=== PATIENT | female | born 1975 | race Caucasian/White ===

== ENCOUNTER 2017-06-08 18:19 | Emergency (ER) | payer MEDICAID ==
[~2017-06-08] VITALS: Ht 167.6 cm; Wt 80.4 kg
[~2017-06-08 18:19] MED LIST: ESTROGEN; HYDR12.53 PO; HYDR25TA6 PO; IBUP200T48 PO; MELA3TAB PO; NAPR500T3 PO; OXYC-302 PO; ZOLP5TAB6 PO; [UNRECOGNIZED DRUG - OTHER] PO; doxycycline PO
[2017-06-08 19:11] LABS: DAU SCREEN DISCLAIMER
[2017-06-08 19:30] LABS: BLOOD UREA NITROGEN 14 mg/dL (7-18)
[2017-06-08 19:31] LABS: ACETAMINOPHEN < 2 mcg/mL (10-30)
[2017-06-08] MEDS ORDERED: SULFAMETH./TRIMETHOPRIM DS 800MG/160MG TABLET PO ONE (21:30)
[2017-06-08] MEDS ORDERED: POTASSIUM CHLORIDE 20 MEQ TAB.ER.PRT PO ONE (21:30)
[2017-06-08] MEDS ORDERED: HALOPERIDOL 5 MG/ML IM PRN (22:00)
[2017-06-08] MEDS ORDERED: TEMAZEPAM 15 MG CAPSULE PO PRN (22:00)
[2017-06-08] MEDS ORDERED: BENZTROPINE 1 MG TABLET PO PRN (22:00)
[2017-06-08] MEDS ORDERED: SULFAMETH./TRIMETHOPRIM DS 800MG/160MG TABLET ONE (22:05)
[2017-06-08] MEDS ORDERED: POTASSIUM CHLORIDE 20 MEQ TAB.ER.PRT ONE (22:05)
[2017-06-09 08:57] VITALS: BP 112/57
[2017-06-09] MEDS ORDERED: SULFAMETH./TRIMETHOPRIM DS 800MG/160MG TABLET ONE (09:10)
[2017-06-09] MEDS ORDERED: SULFAMETH./TRIMETHOPRIM DS 800MG/160MG TABLET PO SCH (09:30)
== END 2017-06-09 11:49 | disposition home or self-care (01) ==
LOC: ED 21:30 → SUATTDRO 21:47 → EDIP 22:00 → UNDOADMOB 22:00 → ED 06-09 11:49
PROVIDERS: ATTEND Internal Medicine
DX: N30.01 Acute cystitis with hematuria (principal); T42.6X2A Poisoning by other antiepileptic and sedative-hypnotic drugs, intentional self-harm, initial encounter; Y92.9 Unspecified place or not applicable; I10 Essential (primary) hypertension; Z86.718 Personal history of other venous thrombosis and embolism
CPT/HCPCS: 36415; 80048; 80307; 80329; 81001; 82040; 84703; 85025; 93005; 99285; G0480

== ENCOUNTER 2017-11-10 19:20 | Emergency (ER) | payer MEDICAID ==
[~2017-11-10] VITALS: Ht 167.6 cm; Wt 78.0 kg
[~2017-11-10 19:20] MED LIST changes: -IBUP200T48 PO; +IBUP200T49 PO; -MELA3TAB PO; +MELA3TAB2 PO; -NAPR500T3 PO; +NAPR500T4 PO
[2017-11-10 20:27] VITALS: BP 118/74
[2017-11-10 20:54] LABS: BASOPHILS # (AUTO) 0.02 x10^3/uL (0-0.1); BASOPHILS % (AUTO) 0 % (0-1); EOSINOPHILS # (AUTO) 0.01 x10^3/uL (0-0.4); EOSINOPHILS % (AUTO) 0 % (1-7); LYMPHOCYTES % (AUTO) 9 % (22-44); MD NO; MEAN CORPUSCULAR HEMOGLOBIN 30.7 pg (27.0-34.8); MEAN CORPUSCULAR HGB CONC 34.1 g/dL (32.4-35.8); MEAN PLATELET VOLUME 7.7 fL (7.4-10.4); MONOCYTES # (AUTO) 0.29 x10^3/uL (0.2-0.8); MONOCYTES % (AUTO) 3 % (2-9); NEUTROPHILS % (AUTO) 88 % (42-75); PLATELET COUNT 344 x10^3/uL (130-400); RED BLOOD COUNT 4.74 x10^6/uL (3.82-5.3); RED CELL DISTRIBUTION WIDTH 13.6 % (9.6-15.2)
[2017-11-10] MEDS ORDERED: MECLIZINE CHEWABLE 25 MG TAB ONE (20:56)
[2017-11-10] MEDS ORDERED: MECLIZINE CHEWABLE 25 MG TAB PO ONE (21:00)
[2017-11-10 21:03] LABS: ALBUMIN 3.5 g/dL (3.4-5.0); ANION GAP 8 mmol/L (5-15); CALCIUM 9.2 mg/dL (8.5-10.1); CHLORIDE 102 mmol/L (98-107); CREATININE 0.67 mg/dL (0.55-1.02)
[2017-11-10 21:07] LABS: TROPONIN I < 0.015 ng/mL (0.000-0.045)
== END 2017-11-10 22:33 | disposition home or self-care (01) ==
LOC: ED 21:39
DX: R11.0 Nausea (principal); R42 Dizziness and giddiness; R06.02 Shortness of breath; I10 Essential (primary) hypertension
CPT/HCPCS: 36415; 80048; 82040; 84484; 84703; 85025; 93005

== ENCOUNTER 2018-06-27 08:09 | Inpatient (IN) | payer MEDICAID ==
[2018-06-24 15:57] LABS: MICROSCOPIC NOT IND
[2018-06-24 16:04] LABS: BASOPHILS # (AUTO) 0.07 x10^3/uL (0-0.1); BASOPHILS % (AUTO) 1 % (0-1); EOSINOPHILS # (AUTO) 0.08 x10^3/uL (0-0.4); EOSINOPHILS % (AUTO) 1 % (1-7); LYMPHOCYTES % (AUTO) 25 % (22-44); MD NO; MEAN CORPUSCULAR HEMOGLOBIN 31.4 pg (27.0-34.8); MEAN CORPUSCULAR VOLUME 92.2 fL (80-100); MONOCYTES # (AUTO) 0.58 x10^3/uL (0.2-0.8); MONOCYTES % (AUTO) 6 % (2-9); NEUTROPHILS # (AUTO) 7.01 x10^3/uL (1.8-6.8); NEUTROPHILS % (AUTO) 68 % (42-75); PLATELET COUNT 385 x10^3/uL (130-400); RED BLOOD COUNT 4.85 x10^6/uL (3.82-5.3); RED CELL DISTRIBUTION WIDTH 14.2 % (9.6-15.2)
[2018-06-24 16:06] LABS: INTERNATIONAL NORMALIZED RATIO 0.95 (0.93-1.1); PROTHROMBIN TIME 9.8 Seconds (9.6-11.5)
[2018-06-24 16:09] LABS: ALANINE AMINOTRANSFERASE 72 U/L (12-78); ALBUMIN 3.8 g/dL (3.4-5.0); ANION GAP 9 mmol/L (5-15); CHLORIDE 103 mmol/L (98-107); CREATININE 0.72 mg/dL (0.55-1.02)
[2018-06-24 16:11] LABS: ALKALINE PHOSPHATASE 80 U/L (45-117); BILIRUBIN,TOTAL 0.4 mg/dL (0.2-1.0); TOTAL PROTEIN 7.8 g/dL (6.4-8.2)
[2018-06-24 16:49] LABS: HCT (SEDRATE) 44.7 % (34.6-47.8)
[~2018-06-27] VITALS: Ht 167.6 cm; Wt 88.6 kg
[~2018-06-27 08:09] MED LIST changes: +NAPR-685 PO; -NAPR500T4 PO
[2018-06-27 08:46] VITALS: BP 139/92
[2018-06-27] MEDS ORDERED: MIDAZOLAM 1 MG/ML, 2ML ONE (08:52)
[2018-06-27] MEDS ORDERED: FENTANYL PF 250 MCG/5ML ONE (08:52)
[2018-06-27] MEDS ORDERED: ROCURONIUM 10MG/ML,5ML ONE (08:53)
[2018-06-27] MEDS ORDERED: PROPOFOL 10 MG/ML, 20ML ONE (08:53)
[2018-06-27] MEDS ORDERED: FAMOTIDINE 20 MG TABLET PO ONE (09:00)
[2018-06-27] MEDS ORDERED: GABAPENTIN 300 MG CAPSULE PO ONE (09:00)
[2018-06-27] MEDS ORDERED: ACETAMINOPHEN 500 MG TABLET PO ONE (09:00)
[2018-06-27] MEDS ORDERED: OxyconTIN ER 20 MG TAB.ER PO ONE (09:00)
[2018-06-27] MEDS: LACTATED RINGERS 1,000 ML IV SCH ×3 (09:25→17:53)
[2018-06-27] MEDS ORDERED: BUPIVACAINE/PF 0.5% ONE (09:26)
[2018-06-27] MEDS ORDERED: VANCOMYCIN 1,000 MG ONE (09:26)
[2018-06-27] MEDS ORDERED: TRANEXAMIC ACID 100 MG/ML, 10ML ONE (09:26)
[2018-06-27] MEDS ORDERED: EPINEPHRINE 1 MG/ML, 1ML ONE (09:27)
[2018-06-27] MEDS ORDERED: OXYcodone 5 MG/5 ML ORAL.SOL UDC PO PRN (09:30)
[2018-06-27] MEDS ORDERED: PROMETHAZINE 25 MG/ML, 1ML IV PRN (09:30)
[2018-06-27] MEDS ORDERED: ONDANSETRON 2MG/ML, 2ML IV PRN (09:30)
[2018-06-27] MEDS ORDERED: HYDROmorphone 1 MG/ML, 1ML IV PRN (09:30)
[2018-06-27] MEDS ORDERED: LABETALOL 5MG/ML, 20ML IV PRN (09:30)
[2018-06-27] MEDS ORDERED: FENTANYL PF 100 MCG/2ML IV PRN (09:30)
[2018-06-27] MEDS ORDERED: hydrALAzine 20 MG/ML, 1ML IV PRN (09:30)
[2018-06-27] MEDS ORDERED: CEFAZOLIN 1,000 MG ONE ×2 (10:21)
[2018-06-27] MEDS ORDERED: DEXAMETHASONE 4 MG/ML, 1ML ONE ×2 (10:21)
[2018-06-27] MEDS ORDERED: BUPIVACAINE/PF-EPI 0.5% 1:200K IM ONE (10:42)
[2018-06-27] MEDS ORDERED: ONDANSETRON 2MG/ML, 2ML ONE (11:16)
[2018-06-27] MEDS ORDERED: HYDROmorphone 2 MG/ML, 1ML ONE ×2 (12:45→12:56)
[2018-06-27] MEDS ORDERED: OXYcodone 5 MG/5 ML ORAL.SOL UDC ONE (12:56)
[2018-06-27] MEDS ORDERED: MEPERIDINE/PF 50 MG/ML ONE (12:57)
[2018-06-27] MEDS: MEPERIDINE/PF 25MG/0.5ML IVPush PRN ×2 (13:00→13:21)
[2018-06-27] MEDS ORDERED: KETOROLAC 30 MG/1 ML IVPush STA (13:12)
[2018-06-27] MEDS ORDERED: KETOROLAC 30 MG/1 ML ONE (13:14)
[2018-06-27] MEDS ORDERED: DIAZEPAM 5 MG/ML, 10ML VIAL IVPush PRN (13:30)
[2018-06-27] MEDS ORDERED: TRANEXAMIC ACID 100 MG/ML, 10ML IV ONE (13:30)
[2018-06-27] MEDS ORDERED: TRANEXAMIC ACID 1,000 MG in SODIUM CHLORIDE 0.9% 100 ML IV ONE (13:30)
[2018-06-27 14:50] VITALS: BP 128/72
[2018-06-27] MEDS ORDERED: LORazepam 1MG TABLET PO PRN (16:00)
[2018-06-27] MEDS ORDERED: HYDROcodone/APAP 10/325 MG TABLET PO PRN (16:00)
[2018-06-27] MEDS ORDERED: ONDANSETRON ODT 4 MG PO PRN ×2 (16:00→20:00)
[2018-06-27] MEDS ORDERED: ALUMINUM/MAG/SIMETHICONE 30 ML UDC PO PRN (16:00)
[2018-06-27] MEDS ORDERED: OXYcodone IR 5MG TABLET PO PRN ×3 (16:00→16:30)
[2018-06-27] MEDS ORDERED: LABETALOL 5MG/ML, 20ML IVPush SCH (16:00)
[2018-06-27] MEDS ORDERED: PROMETHAZINE 25 MG SUPP PR PRN (16:00)
[2018-06-27] MEDS ORDERED: ACETAMINOPHEN 325 MG TABLET PO PRN (16:00)
[2018-06-27] MEDS ORDERED: ONDANSETRON 2MG/ML, 2ML IVPush PRN ×2 (16:00→20:00)
[2018-06-27] MEDS ORDERED: ZOLPIDEM 5MG TABLET PO PRN (16:00)
[2018-06-27] MEDS ORDERED: morphine SULFATE 10 MG/ML, 1ML IV PRN (16:00)
[2018-06-27] MEDS ORDERED: SCOPOLAMINE PATCH, 1.5MG PATCH.TD72 TD SCH (16:00)
[2018-06-27] MEDS ORDERED: SENNA/DOCUSATE TABLET PO PRN (16:00)
[2018-06-27] MEDS ORDERED: LORazepam 2 MG/ML, 1ML IV PRN (16:00)
[2018-06-27] MEDS ORDERED: PROMETHAZINE 25 MG/ML, 1ML IM PRN (16:00)
[2018-06-27] MEDS ORDERED: ACETAMINOPHEN 500 MG TABLET PO PRN (16:00)
[2018-06-27] MEDS ORDERED: DIPHENHYDRAMINE 25 MG CAPSULE PO PRN (16:00)
[2018-06-27] MEDS ORDERED: DIAZEPAM 5 MG TABLET PO PRN (16:00)
[2018-06-27] MEDS ORDERED: MAGNESIUM HYDROXIDE 8%, 30ML UDC PO PRN (16:00)
[2018-06-27] MEDS ORDERED: BISACODYL 10 MG SUPP PR PRN (16:00)
[2018-06-27] MEDS ORDERED: DEXAMETHASONE 6 MG in SODIUM CHLORIDE 0.9% 50 ML IV PRN (17:00)
[2018-06-27] MEDS ORDERED: LABETALOL 5MG/ML, 20ML IVPush PRN (18:00)
[2018-06-27] MEDS ORDERED: CEFAZOLIN PMX 2GM/100ML 100 ML IVPB SCH (18:30)
[2018-06-27] MEDS ORDERED: CEFAZOLIN PMX 2GM/50ML 50 ML IVPB SCH (18:30)
[2018-06-27] MEDS: CEFAZOLIN 2,000 MG in DEXTROSE 5% 50 ML IVPB SCH (19:18)
[2018-06-27] MEDS: D5%-0.45NACL+KCL 20MEQ 1,000 ML IV SCH (19:18)
[2018-06-27 19:49] VITALS: BP 115/74
[2018-06-27] MEDS: DOCUSATE 100 MG CAPSULE PO SCH (21:08)
[2018-06-27] MEDS: KETOROLAC 30 MG/1 ML IV PRN (21:11)
[2018-06-28] MEDS: ASPIRIN 325 MG TABLET EC PO SCH ×2 (01:10→13:43)
[2018-06-28 01:24] VITALS: BP 104/67
[2018-06-28] MEDS: CEFAZOLIN 2,000 MG in DEXTROSE 5% 50 ML IVPB SCH (03:08)
[2018-06-28] MEDS: D5%-0.45NACL+KCL 20MEQ 1,000 ML IV SCH (05:00)
[2018-06-28 06:06] LABS: BASOPHILS # (AUTO) 0.02 x10^3/uL (0-0.1); BASOPHILS % (AUTO) 0 % (0-1); EOSINOPHILS # (AUTO) 0.01 x10^3/uL (0-0.4); EOSINOPHILS % (AUTO) 0 % (1-7); LYMPHOCYTES # (AUTO) 1.39 x10^3/uL (1-3.4); LYMPHOCYTES % (AUTO) 12 % (22-44); MD NO; MEAN CORPUSCULAR HEMOGLOBIN 31.3 pg (27.0-34.8); MEAN CORPUSCULAR HGB CONC 33.7 g/dL (32.4-35.8); MEAN CORPUSCULAR VOLUME 92.8 fL (80-100); MEAN PLATELET VOLUME 7.7 fL (7.4-10.4); MONOCYTES # (AUTO) 0.86 x10^3/uL (0.2-0.8); MONOCYTES % (AUTO) 7 % (2-9); NEUTROPHILS # (AUTO) 9.48 x10^3/uL (1.8-6.8); NEUTROPHILS % (AUTO) 81 % (42-75); PLATELET COUNT 271 x10^3/uL (130-400); RED BLOOD COUNT 3.65 x10^6/uL (3.82-5.3); RED CELL DISTRIBUTION WIDTH 13.4 % (9.6-15.2)
[2018-06-28] MEDS: KETOROLAC 30 MG/1 ML IV PRN (06:13)
[2018-06-28 06:44] VITALS: BP 124/74
[2018-06-28] MEDS ORDERED: HYDROCHLOROTHIAZIDE 25 MG TABLET PO SCH (09:00)
[2018-06-28] MEDS: DOCUSATE 100 MG CAPSULE PO SCH (09:41)
[2018-06-28] MEDS ORDERED: ASPIRIN 325 MG TABLET EC PO SCH (11:00)
[2018-06-28] MEDS ORDERED: HYDR-3307 PO (14:51)
[2018-06-28] MEDS ORDERED: OXYC5CAP2 PO (14:53)
[2018-06-28] MEDS ORDERED: DIAZ5TAB4 PO (14:54)
[2018-06-28] MEDS ORDERED: CEPH-376 PO (14:56)
[2018-06-28] MEDS ORDERED: ASPI-650 PO (14:56)
[2018-06-28 15:39] VITALS: BP_SYST 118; BP_SYST 121; BP_DIAS 61; BP_DIAS 71
== END 2018-06-28 17:30 | disposition home or self-care (01) | DRG 470 ==
LOC: OUT 08:09 → 4NOR 14:45 → OUT 22:38 → 4NOR 22:39
PROVIDERS: ADMIT Orthopaedic Surgery Orthopaedic Surgery of the Spine; ATTEND Orthopaedic Surgery Orthopaedic Surgery of the Spine
PROC: 0SRC0J9 Replacement of Right Knee Joint with Synthetic Substitute, Cemented, Open Approach (ICD-10-PCS; principal; 2018-06-27 10:00)
DX: M17.11 Unilateral primary osteoarthritis, right knee (principal); Z88.0 Allergy status to penicillin
CPT/HCPCS: 36415; 71046; 80053; 81003; 85025; 85610; 85651; 85730; 87081; 93005; C1713; J0171; J0690; J1100; J1170; J1885; J2175; J2250; J2405; J2550; J2704; J3010; J3360; J3370; J3490; C1776; J3480; J7120

== ENCOUNTER 2018-10-09 06:26 | Emergency (ER) | payer MEDICAID ==
[~2018-10-09] VITALS: Ht 167.6 cm; Wt 89.9 kg
[~2018-10-09 06:26] MED LIST changes: +ASPI-650 PO; +CEPH-376 PO; +DIAZ5TAB4 PO; +HYDR-3307 PO; +HYDR12.517 PO; -HYDR12.53 PO; +OXYC5CAP2 PO
[2018-10-09] MEDS ORDERED: MORPHINE SULFATE 4 MG/ML, 1ML IVPush PRN (07:00)
[2018-10-09] MEDS ORDERED: ONDANSETRON 2MG/ML, 2ML IVPush ONE (07:00)
[2018-10-09 07:04] LABS: BASOPHILS # (AUTO) 0.01 x10^3/uL (0-0.1); BASOPHILS % (AUTO) 0 % (0-1); EOSINOPHILS # (AUTO) 0.13 x10^3/uL (0-0.4); EOSINOPHILS % (AUTO) 2 % (1-7); LYMPHOCYTES # (AUTO) 1.97 x10^3/uL (1-3.4); LYMPHOCYTES % (AUTO) 23 % (22-44); MD NO; MEAN CORPUSCULAR HEMOGLOBIN 30.5 pg (27.0-34.8); MEAN CORPUSCULAR HGB CONC 34.3 g/dL (32.4-35.8); MEAN PLATELET VOLUME 7.8 fL (7.4-10.4); MONOCYTES # (AUTO) 0.55 x10^3/uL (0.2-0.8); MONOCYTES % (AUTO) 7 % (2-9); NEUTROPHILS # (AUTO) 5.78 x10^3/uL (1.8-6.8); NEUTROPHILS % (AUTO) 68 % (42-75); PLATELET COUNT 366 x10^3/uL (130-400); RED BLOOD COUNT 4.73 x10^6/uL (3.82-5.3); RED CELL DISTRIBUTION WIDTH 13.4 % (9.6-15.2)
[2018-10-09 07:15] LABS: ALBUMIN 3.5 g/dL (3.4-5.0); ANION GAP 13 mmol/L (5-15); CALCIUM 8.6 mg/dL (8.5-10.1); CHLORIDE 100 mmol/L (98-107)
[2018-10-09 07:18] LABS: ALANINE AMINOTRANSFERASE 40 U/L (12-78); ALKALINE PHOSPHATASE 75 U/L (45-117); BILIRUBIN,TOTAL 0.4 mg/dL (0.2-1.0); CREATININE 0.77 mg/dL (0.55-1.02); TOTAL PROTEIN 7.5 g/dL (6.4-8.2)
[2018-10-09] MEDS ORDERED: MORPHINE SULFATE 4 MG/ML, 1ML ONE (07:30)
[2018-10-09] MEDS ORDERED: ONDANSETRON 2MG/ML, 2ML ONE (07:32)
[2018-10-09] MEDS ORDERED: OMNIPAQUE 350 MG/ML, 100ML BOTTLE ONE (07:56)
[2018-10-09] MEDS ORDERED: SODIUM CHLORIDE FLUSH 10ML SYR IVF ONE (08:00)
[2018-10-09 08:23] LABS: MICROSCOPIC NOT IND
[2018-10-09 08:24] LABS: CULTURE INDICATED? NO
[2018-10-09] MEDS ORDERED: POTASSIUM CHLORIDE 10% 40 MEQ/30 ML UDC PO ONE (08:30)
[2018-10-09] MEDS ORDERED: POTASSIUM CHLORIDE 20 MEQ TAB.ER.PRT ONE ×2 (08:34→08:41)
[2018-10-09 08:36] VITALS: BP 127/81
== END 2018-10-09 09:09 | disposition home or self-care (01) ==
LOC: ED 08:02
DX: E87.6 Hypokalemia (principal); R10.11 Right upper quadrant pain; R10.31 Right lower quadrant pain; R11.0 Nausea; I10 Essential (primary) hypertension; Z87.440 Personal history of urinary (tract) infections; Z87.42 Personal history of other diseases of the female genital tract; Z86.718 Personal history of other venous thrombosis and embolism
CPT/HCPCS: 36415; 74177; 80053; 81003; 83690; 85025; 96374; 96375; 99284; J2405; Q9967

== ENCOUNTER 2020-08-23 15:19 | Emergency (ER) | payer SELFPAY ==
[~2020-08-23] VITALS: Ht 167.6 cm; Wt 88.0 kg
[~2020-08-23 15:19] MED LIST changes: +HYDR-3246 PO; -HYDR-3307 PO; -MELA3TAB2 PO; +MELA3TAB31 PO
[2020-08-23 15:31] VITALS: BP 159/94
--- NOTE | 2020-08-23 17:46 | NUR ---
TASK RN: [id number]
--- NOTE | 2020-08-23 18:02 | NUR ---
TASK RN: [id number]
== END 2020-08-23 18:05 | disposition left against medical advice (07) ==
LOC: ED 17:50
DX: M54.2 Cervicalgia (principal); R06.02 Shortness of breath; R42 Dizziness and giddiness; H53.8 Other visual disturbances; I10 Essential (primary) hypertension; R00.0 Tachycardia, unspecified
CPT/HCPCS: 93005; 99283

== ENCOUNTER 2020-09-08 18:04 | Emergency (ER) | payer OTHER ==
[~2020-09-08] VITALS: Ht 167.6 cm; Wt 85.9 kg
[2020-09-08] MEDS ORDERED: KETOROLAC 30 MG/1 ML ONE (19:00)
[2020-09-08] MEDS ORDERED: ONDANSETRON 2MG/ML, 2ML IVPush ONE (19:00)
[2020-09-08] MEDS ORDERED: LORazepam 2 MG/ML, 1ML ONE (19:00)
[2020-09-08] MEDS ORDERED: LORazepam 2 MG/ML, 1ML IV ONE (19:00)
[2020-09-08] MEDS ORDERED: KETOROLAC 30 MG/1 ML IVPush ONE (19:00)
[2020-09-08] MEDS ORDERED: ONDANSETRON 2MG/ML, 2ML ONE (19:00)
[2020-09-08] MEDS ORDERED: SODIUM CHLORIDE 0.9%, 500ML IVBOLUS ONE (19:00)
[2020-09-08 19:07] LABS: BASOPHILS % (AUTO) 1 % (0-1); EOSINOPHILS % (AUTO) 1 % (1-7); LYMPHOCYTES % (AUTO) 26 % (22-44); MEAN CORPUSCULAR HGB CONC 34.6 g/dL (32.4-35.8); MONOCYTES % (AUTO) 5 % (2-9); NEUTROPHILS % (AUTO) 68 % (42-75); PLATELET COUNT 365 x10^3/uL (130-400); RED BLOOD COUNT 4.84 x10^6/uL (3.82-5.3); RED CELL DISTRIBUTION WIDTH 13.1 % (9.6-15.2)
[2020-09-08 19:12] LABS: ALBUMIN 3.7 g/dL (3.4-5.0); ANION GAP 9 mmol/L (5-15); CALCIUM 9.6 mg/dL (8.5-10.1); CHLORIDE 104 mmol/L (98-107); CREATININE 0.86 mg/dL (0.55-1.02)
[2020-09-08 19:16] LABS: TROPONIN I < 0.015 ng/mL (0.000-0.045)
[2020-09-08 19:17] LABS: MD NO
[2020-09-08] MEDS ORDERED: POTASSIUM CHLORIDE 20 MEQ TAB.ER.PRT ONE (19:49)
[2020-09-08] MEDS ORDERED: MAGNESIUM SULFATE/D5W 100 ML ONE (19:50)
[2020-09-08] MEDS ORDERED: POTASSIUM CHLORIDE 20 MEQ TAB.ER.PRT PO ONE (20:00)
[2020-09-08] MEDS ORDERED: MAGNESIUM SULFATE/D5W 100 ML IVPB ONE (20:00)
[2020-09-08 20:45] VITALS: BP 121/76
== END 2020-09-08 21:01 | disposition home or self-care (01) ==
LOC: ED 20:00
DX: R07.89 Other chest pain (principal); E87.6 Hypokalemia; E83.42 Hypomagnesemia; R00.0 Tachycardia, unspecified; I25.2 Old myocardial infarction; I10 Essential (primary) hypertension; E11.9 Type 2 diabetes mellitus without complications; Z86.718 Personal history of other venous thrombosis and embolism; Z90.49 Acquired absence of other specified parts of digestive tract; Z90.710 Acquired absence of both cervix and uterus
CPT/HCPCS: 36415; 71045; 80048; 82040; 83735; 84484; 85025; 93005; 96361; 96365; 96375; 99285; J1885; J2060; J2405; J7040

== ENCOUNTER 2020-09-22 17:06 | Emergency (ER) | payer OTHER ==
[~2020-09-22] VITALS: Ht 167.6 cm; Wt 86.4 kg
[2020-09-22 18:32] LABS: ALBUMIN 3.9 g/dL (3.4-5.0); ANION GAP 7 mmol/L (5-15); CALCIUM 9.5 mg/dL (8.5-10.1); CHLORIDE 99 mmol/L (98-107)
[2020-09-22 18:33] LABS: CREATININE 0.88 mg/dL (0.55-1.02)
[2020-09-22 20:47] VITALS: BP 142/85
== END 2020-09-22 20:49 | disposition home or self-care (01) ==
LOC: ED 20:43
DX: E87.6 Hypokalemia (principal); E83.42 Hypomagnesemia; E11.9 Type 2 diabetes mellitus without complications; Z88.0 Allergy status to penicillin; Z90.710 Acquired absence of both cervix and uterus; Z90.89 Acquired absence of other organs
CPT/HCPCS: 36415; 80048; 82040; 99283